=== PATIENT | female | born 1935 | race Caucasian/White ===

== ENCOUNTER 2018-12-05 10:29 | Emergency (ER) | payer OTHER, MEDICAID ==
[~2018-12-05] VITALS: Ht 152.4 cm; Wt 63.5 kg
[2018-12-05 10:41] VITALS: BP_SYST 168
[2018-12-05] MEDS ORDERED: LORazepam 2 MG/ML VIAL (FOR ER USE) IVP ONE (12:15)
[2018-12-05 12:58] LABS: BASOPHILS # (AUTO) 0.1 K/uL (0.0-0.2); BASOPHILS % (AUTO) 0.6 % (0.0-2.0); EOSINOPHILS # (AUTO) 0.1 K/uL (0.0-0.4); EOSINOPHILS % (AUTO) 0.7 % (0.0-4.0); HEMATOCRIT 34.9 % (36-48); HEMOGLOBIN 11.4 g/dL (12.0-16.0); LYMPHOCYTES # (AUTO) 1.6 K/uL (1.0-5.5); LYMPHOCYTES % (AUTO) 14.9 % (20.5-51.5); MEAN CORPUSCULAR HEMOGLOBIN 31 pg (27-31); MEAN CORPUSCULAR HGB CONC 33 % (32-36); MEAN CORPUSCULAR VOLUME 95 fL (79.0-98.0); MONOCYTES # (AUTO) 0.8 K/uL (0.0-1.0); MONOCYTES % (AUTO) 7.3 % (1.7-9.3); NEUTROPHILS % (AUTO) 76.5 % (40.0-70.0); PLATELET COUNT (AUTO) 279 K/uL (130-430); RED BLOOD CELL COUNT(AUTO) 3.69 MIL/uL (4.2-6.2); RED CELL DISTRIBUTION WIDTH 15.3 % (9.0-15.0); WHITE BLOOD COUNT (AUTO) 10.5 K/uL (4.8-10.8)
[2018-12-05] MEDS ORDERED: CHOL2000 PO (13:07)
[2018-12-05] MEDS ORDERED: GABA-531 PO (13:07)
[2018-12-05] MEDS ORDERED: ONDA4TAB5 PO (13:07)
[2018-12-05] MEDS ORDERED: METO-442 PO (13:07)
[2018-12-05] MEDS ORDERED: AMLO5TAB4 PO (13:07)
[2018-12-05] MEDS ORDERED: CLOP300T2 PO (13:07)
[2018-12-05] MEDS ORDERED: LIP40 PO (13:07)
[2018-12-05] MEDS ORDERED: ACET1TAB25 PO (13:07)
[2018-12-05] MEDS ORDERED: ASA81 PO (13:07)
[2018-12-05] MEDS ORDERED: CALC-7 PO (13:07)
[2018-12-05 13:09] LABS: INR 0.9 (0.8-1.2); PROTHROMBIN TIME 9.7 SECS (9.5-12.5)
[2018-12-05 13:22] LABS: ANION GAP 7 (5-15); CALCIUM 8.8 mg/dL (8.4-11.0); CHLORIDE 104 mmol/L (98-107); CREATININE 0.84 mg/dL (0.55-1.30); GLUCOSE 150 mg/dL (70-99); POTASSIUM 5.1 mmol/L (3.5-5.1); SODIUM SERUM 138 mmol/L (136-145); UREA NITROGEN, BLOOD 16 mg/dL (8-21)
[2018-12-05 13:28] LABS: ALANINE AMINOTRANSFERASE 26 U/L (12-78); ALBUMIN 2.8 g/dL (3.4-4.8); ASPARTATE AMINOTRANSFERASE 53 U/L (10-37); TOTAL BILIRUBIN 0.5 mg/dL (0.0-1.0)
[2018-12-05 13:33] LABS: ALCOHOL, BLOOD < 3 mg/dL (<10)
[2018-12-05] MEDS ORDERED: cefTRIAXone 1 GM IVPB PREMIX 50 ML IV ONE (13:45)
[2018-12-05 15:59] LABS: BARBITURATE, URINE NEGATIVE (NEG <=200)
[2018-12-05 16:00] LABS: BENZODIAZEPINE, URINE POSITIVE (NEG <=150); CANNABINOID, URINE NEGATIVE (NEG <=50); COCAINE, URINE NEGATIVE (NEG <=150); METHAMPHETAMINES SCREEN,URINE NEGATIVE (NEG <=500); OPIATE, URINE POSITIVE (NEG <=100); PHENCYCLIDINE SCREEN,URINE NEGATIVE (NEG <=25); UR TRICYCLIC ANTIDEPRESSANTS NEGATIVE (NEG <=300); URINE AMPHETAMINE NEGATIVE (NEG <=500); URINE METHADONE NEGATIVE (NEG <=200); URINE OXYCODONE SCREEN NEGATIVE (NEG <=100); URINE PROPOXYPHENE SCREEN NEGATIVE (NEG <=300)
[2018-12-05 16:10] VITALS: BP_SYST 160
== END 2018-12-05 16:10 | disposition home or self-care (01) ==
LOC: SED 10:29
DX: M47.896 Other spondylosis, lumbar region (principal); I10 Essential (primary) hypertension; Z86.79 Personal history of other diseases of the circulatory system; Z79.82 Long term (current) use of aspirin; Z79.899 Other long term (current) drug therapy
CPT/HCPCS: 36415; 71045; 72131; 80053; 80307; 82140; 83605; 83880; 84439; 84484; 85025; 85610; 87040; 93005; 96365; 96375; 99284; G0482; J0696; J2060